=== PATIENT | female | born 1960 | race Caucasian/White ===

== ENCOUNTER 2017-04-26 12:09 | Emergency (ER) | payer BC, OTHER ==
[2017-04-26 12:26] VITALS: BMI 43.6
--- NOTE | 2017-04-26 12:34 | PDOC ---
History of Present Illness <Masha Gomez - Last Filed: 04/26/17 17:46> - General History Source: Patient Exam Limitations: No Limitations - History of Present Illness Travel History: No Initial Comments: 04/26/17 12:29 56 y/o female with left side abdominal pain and flank pain. No dysuria or hematuria. No fever or chills. This has been going on for 1 week. No fall or trauma. Now feeling nauseous and has a mild headache. No hx of kidney stone, but hx of thoracic aneusym repair.Patient denies vomiting or diarrhea. No rash. Denies chest pain or SOB. Pain radiates down back. No procedures, weakness or incontinence. Sates her CT back in December from [facility] was stable. She states to have a graft at the arch. Timing/Duration: reports: constant Abdominal Pain Onset Location: reports: LUQ, flank Pain Radiation: reports: no radiation <Tk Lehman - Last Filed: 04/26/17 18:03> - General Chief Complaint: Pain Stated Complaint: LEFT BACK/FLANK PAIN Time Seen by Provider: 04/26/17 12:12 Past History <Masha Gomez - Last Filed: 04/26/17 17:46> - Past Medical History COPD: No Diabetes: Yes GI Disorders: Yes HTN: Yes - Surgical History Cardiac Surgery: Yes (ASCENDING AORTIC ANUERYSM, PROSTHETIC VALVE) Cholecystectomy: Yes - Suicide/Smoking/Psychosocial Hx Smoking Status: Yes Smoking History: Former smoker Have you smoked in the past 12 months: No Number of Cigarettes Smoked Daily: 0 Information on smoking cessation initiated: No Hx Alcohol Use: No Drug/Substance Use Hx: No Substance Use Type: None <Tk Lehman - Last Filed: 04/26/17 18:03> - Past Medical History Allergies/Adverse Reactions: Allergies Allergy/AdvReac Type Severity Reaction Status Date / Time Penicillins Allergy Unknown Verified 04/26/17 12:12 atenolol Allergy Verified 04/26/17 12:12 Home Medications: Ambulatory Orders Ascorbic Acid [Vitamin C] 1,000 mg PO BID 12/13/12 Carvedilol [Coreg] 25 mg PO BID 12/13/12 Docusate Sodium [Colace] 100 mg PO BID 12/13/12 Lansoprazole [Prevacid] 15 mg PO DAILY PRN 12/13/12 Metformin HCl [Glucophage] 1,000 mg PO BID 12/13/12 Docosahexanoic Acid/Epa [Fish Oil Concentrate Softgel] 1 each PO BID 06/26/15 Losartan Potassium 100 mg PO DAILY 06/26/15 Aspirin [Aspirin EC] 81 mg PO DAILY 04/26/17 Cholecalciferol (Vitamin D3) [Vitamin D3] 5,000 unit PO DAILY 04/26/17 Cinnamon Bark [Cinnamon] 1,000 mg PO DAILY 04/26/17 Glimepiride [Amaryl] 1 mg PO DAILY 04/26/17 Ibuprofen [Advil -] 600 mg PO ONCE PRN 04/26/17 Review of Systems - Review of Systems Able to Perform ROS?: Yes Is the patient limited Lebanese proficient: No Constitutional: No: Chills, Fever Respiratory: No: Cough, Shortness of Breath Cardiac (ROS): No: Chest Pain ABD/GI: Yes: Nausea : No: Burning, Dysuria, Hematuria Musculoskeletal: Yes: Back Pain Neurological: Yes: Headache. No: Numbness, Paresthesia All Other Systems: Reviewed and Negative <Tk Lehman - Last Filed: 04/26/17 18:03> *Physical Exam - Vital Signs Last Vital Signs Temp Pulse Resp BP Pulse Ox 99.3 F 82 20 155/88 97 04/26/17 12:11 04/26/17 12:11 04/26/17 12:11 04/26/17 12:11 04/26/17 12:11 <Masha Gomez - Last Filed: 04/26/17 17:46> - Vital Signs Last Vital Signs Temp Pulse Resp BP Pulse Ox 99.3 F 82 20 155/88 97 04/26/17 12:11 04/26/17 12:11 04/26/17 12:11 04/26/17 12:11 04/26/17 12:11 - Physical Exam General Appearance: Yes: Nourished, Appropriately Dressed. No: Apparent Distress HEENT: positive: EOMI, SHANI, Normal ENT Inspection, Normal Voice Neck: positive: Trachea midline, Normal Thyroid, Supple. negative: Tender, Rigid Respiratory/Chest: positive: Lungs Clear, Normal Breath Sounds, Other (midline scar noted). negative: Chest Tender, Respiratory Distress Cardiovascular: positive: Regular Rhythm, Regular Rate, S1, S2. negative: Edema , JVD, Murmur Vascular Pulses: Femoral (R): 4+, Femoral (L): 4+, Carotid (R): 4+, Carotid (L) : 4+, Dorsalis-Pedis (R): 4+, Doralis-Pedis (L): 4+ Gastrointestinal/Abdominal: positive: Normal Bowel Sounds, Tender (mid epigastric and LUQ tenderness noted, no RLQ or RUQ tenderness, no pulsatile mass , no rash noted), Flat, Soft. negative: Organomegaly, Pulsatile Mass Lymphatic: negative: Adenopathy, Tenderness, Other Musculoskeletal: positive: Normal Inspection. negative: CVA Tenderness, Vertebral Tenderness (full ROM, no spinous process tenderness noted, mild left lower paraverteberal tenderness noted) Extremity: positive: Normal Capillary Refill, Normal Inspection, Normal Range of Motion Integumentary: positive: Normal Color, Dry, Warm Neurologic: positive: crew leader II-XII NML intact, Fully Oriented, Alert, Normal Mood/ Affect, Normal Response, Motor Strength 5/5 <Tk Lehman - Last Filed: 04/26/17 18:03> Heart Score/ECG Review - ECG Intrepretation Comment:: 04/26/17 17:[address] Lehman at this time Impression: Normal sinus rhythm , nonspecific Twave abnormality. No STEMI. Vent rate: 63 bpm <Masha Gomez - Last Filed: 04/26/17 17:46> ED Treatment Course - LABORATORY CBC & Chemistry Diagram: 04/26/17 13:15 04/26/17 13:15 - ADDITIONAL ORDERS Additional order review: Laboratory Results 04/26/17 04/26/17 13:15 12:35 Sodium 137 Potassium 3.5 Chloride 104 Carbon Dioxide 26 Anion Gap 7 L BUN 13 D Creatinine 0.7 Creat Clearance w eGFR > 60 Random Glucose 161 H D Calcium 9.4 Total Bilirubin 0.8 D AST 17 ALT 22 Alkaline Phosphatase 72 Total Protein 7.0 Albumin 4.0 Lipase 21 L Urine Color Yellow Urine Appearance Clear Urine pH 5.5 Ur Specific [place] 1.025 Urine Protein 1+ H Urine Glucose (UA) Negative Urine Ketones Negative Urine Blood Negative Urine Nitrite Negative Urine Bilirubin Negative Urine Urobilinogen 0.2 Ur Leukocyte Esterase Negative Urine RBC 0-3 Urine WBC 0-3 Ur Epithelial Cells Moderate Urine Bacteria Few 04/26/17 13:15 RBC 5.39 H MCV 77.0 L MCHC 32.8 RDW 15.0 MPV 8.3 Neutrophils % 65.4 Lymphocytes % 24.3 Monocytes % 4.4 Eosinophils % 4.6 H Basophils % 1.3 - RADIOLOGY Radiograph Interpretation: EXAM#: TYPE/EXAM: RESULT: [id number] CT/ABDOMEN PELVIS CT WITH CONTR Flank pain. Abdominal pain. Rule out aneurysm. CT scan of the abdomen and pelvis following intravenous contrast. Coronal and sagittal reformatted images were obtained 100 cc of Omnipaque 350 was intravenously injected Comparison: None available Examination was now made available for dictation. Examination is technically suboptimal with poor enhancement seen. Visualized lung base appears unremarkable and the heart is within normal limits in size. The liver is enlarged measuring 21.5 cm in craniocaudal length with diffuse decreased attenuation compatible with a fatty liver. Partially distended stomach without wall thickening. The spleen, pancreas, both adrenal glands and both kidneys appear unremarkable. There is no evidence of small bowel obstruction. Normal stool burden in the colon without wall thickening. Normal size uterus. Partially distended urinary bladder without wall thickening. Perirectal and pericecal fat are clear. A small fat-containing supraumbilical ventral hernia is present without herniating bowel loops. The abdominal aorta is poorly enhanced and is within normal limits in size. There is a faint lucent line within the aorta extending from the distal thoracic down to likely the level of the renal arteries take off consistent with dissection. Faint enhancement of the true and false lumen is present. Visualized osseous structures appear intact with mild degenerative changes in the lower thoracic spine Impression: No prior is available for comparison. Limited examination due to poor enhancement. In particular, there is poor enhancement of the included distal thoracic and abdominal aorta down through its bifurcation. There is evidence of aortic dissection extending from the included distal thoracic aorta probably down to the level of the renal arteries takeoff with faint enhancement of the true and false lumen and without evidence of aneurysmal dilatation. No gross extension of dissection into the celiac and superior mesenteric artery is identified. However, the examination is quite limited due to poor enhancement. Further evaluation with CT angiogram of the chest and abdomen is recommended. Hepatomegaly with fatty infiltration. Status post cholecystectomy. There is no evidence of hydroureteronephrosis, renal or ureteral stone, bilaterally. Case discussed via the phone with Dr. Tk Lehman, emergency room caring attending physician at [facility] at 4:51 PM. Reported By: Humberto Heredia MD 04/26/17 [id number] - Medications Given in the ED: ED Medications Discontinued Medications Generic Name Dose Route Start Last Admin Trade Name Fitz PRN Reason Stop Dose Admin Ketorolac Tromethamine 30 mg 04/26/17 13:24 04/26/17 13:25 Toradol Injection - IVPUSH 04/26/17 13:25 30 mg ONCE ONE Administration Ondansetron HCl 4 mg 04/26/17 12:36 04/26/17 13:15 Zofran Injection IVPUSH 04/26/17 12:37 4 mg ONCE ONE Administration <Masha Gomez - Last Filed: 04/26/17 17:46> - LABORATORY CBC & Chemistry Diagram: 04/26/17 13:15 04/26/17 13:15 - ADDITIONAL ORDERS Additional order review: 04/26/17 12:[address] abd/pelvis r/o stone/aneuysm <Tk Lehman - Last Filed: 04/26/17 18:03> Progress Note - Progress Note Progress Note: As per Radiologist 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 Will transfer pt to [facility] where she had her surgery first performed Pt is in agreement with plan. Images delayed from senior laboratory technician to Radiologist read. Spoke with Dr. Galarza from vascular who recommended to speak to cardiothoracic surgery Spoke with Dr. 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 Verdin <Tk Lehman - Last Filed: 04/26/17 18:03> Medical Decision Making - Medical Decision Making 04/26/17 16:55 I called [facility] ([id number]) and spoke with Serge. A request for transfer to Vascular Surgery was made and I am waiting for a call back from the vascular surgeon, Dr. Mendez. 04/26/17 17:40 Patient's case discussed with Dr. Vj Verdin, cardiothoracic surgery, who accepts this patient for transfer to the cardiothoracic ICU. STAT transfer team is on their way for Transfer of this patient to [facility] at 17:47 <Masha Gomez - Last Filed: 04/26/17 17:46> - Critical Care Time Total Critical Care Time (minutes): 60 Critical Care Statement: The care of this patient involved high complexity decision making to prevent further life threatening deterioration of the patient 's condition and/or to evaluate & treat vital organ system(s) failure or risk of failure. 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
[2017-04-26] MEDS ORDERED: ONDANSETRON 4 MG/2 ML VIAL IVPUSH ONE (12:36)
[2017-04-26] MEDS ORDERED: SODIUM CHLORIDE 1,000 ML IV SCH (12:45)
[2017-04-26 12:49] LABS: PH,URINE 5.5 (4.5-8); URINE APPEARANCE Clear; URINE BILIRUBIN Negative (NEGATIVE); URINE BLOOD Negative (NEGATIVE); URINE COLOR YELLOW; URINE GLUCOSE (UA) Negative (NEGATIVE); URINE KETONE Negative (NEGATIVE); URINE LEUK ESTERASE Negative (NEGATIVE); URINE NITRITE Negative (NEGATIVE); URINE PROTEIN 1+ (NEGATIVE); URINE UROBILINOGEN 0.2 (0.2-1.0)
[2017-04-26] MEDS ORDERED: ONDANSETRON 4 MG/2 ML VIAL ONE (12:59)
[2017-04-26 13:23] LABS: URINE RBC 0-3 /hpf (0-3)
[2017-04-26 13:24] LABS: URINE BACTERIA FEW /hpf (NEGATIVE); URINE WBC 0-3 (0-5)
[2017-04-26] MEDS ORDERED: KETOROLAC TROMETHAMINE 30 MG/1 ML VIAL IVPUSH ONE (13:24)
[2017-04-26] MEDS ORDERED: KETOROLAC TROMETHAMINE 30 MG/1 ML VIAL ONE (13:25)
[2017-04-26 13:29] LABS: BASOPHIL 1.3 % (0-2.0); EOSINOPHIL 4.6 % (0-4.5); MCH 25.2 pg (25.7-33.7); MCHC 32.8 g/dl (32.0-36.0); MEAN PLT VOLUME 8.3 fl (7.5-11.1); NEUTROPHILS 65.4 % (42.8-82.8); PLATELET COUNT 206 K/MM3 (134-434); WHITE BLOOD COUNT 5.8 K/mm3 (4.0-10.8)
[2017-04-26 13:48] LABS: ALK PHOS 72 U/L (32-92); ANION GAP 7 (8-16); BILIRUBIN,TOTAL 0.8 mg/dl (0.2-1.0); CALCIUM 9.4 mg/dl (8.4-10.2); CO2 26 mmol/L (22-28); CREATININE 0.7 mg/dl (0.6-1.3); GLUCOSE,RANDOM 161 mg/dl (74-106); SGOT/AST 17 U/L (10-42); SGPT/ALT 22 U/L (10-40)
[2017-04-26 17:14] VITALS: TEMP 98.6
[2017-04-26 17:36] LABS: ACTIVATED PTT 27.2 SECONDS (24.0-38.9)
[2017-04-26 17:41] LABS: INR 0.95 (0.82-1.09); PROTHROMBIN TIME (PATIENT) 10.7 SEC (10.2-13.0)
[2017-04-26 18:44] VITALS: PULSE 62
[2017-04-26 20:03] VITALS: BP 147/73
--- NOTE | 2017-04-27 08:31 | EKG ---
Test Reason : Blood Pressure : / mmHG Vent. Rate : 063 BPM Atrial Rate : 063 BPM P-R Int : 160 ms QRS Dur : 078 ms QT Int : 432 ms P-R-T Axes : 058 023 062 degrees QTc Int : 442 ms NORMAL SINUS RHYTHM NONSPECIFIC ST AND T WAVE ABNORMALITY POSSIBLE LEFT ATRIAL ENLARGEMENT NO PREVIOUS ECGS AVAILABLE Confirmed by ANUM SHAW MD ([id number]) on 04/27/2017 8:31:22 AM Referred By: DR KRAMER Confirmed By:ANUM SHAW MD
== END 2017-04-26 20:23 | disposition short-term general hospital (02) ==
LOC: FER 12:09 → SUPCPDRO 12:09 → FER 20:23
PROC: 3E0333Z Introduction of Anti-inflammatory into Peripheral Vein, Percutaneous Approach (ICD-10-PCS; principal; 2017-04-26)
PROC: 3E033GC Introduction of Other Therapeutic Substance into Peripheral Vein, Percutaneous Approach (ICD-10-PCS; 2017-04-26)
DX: I71.02 Dissection of abdominal aorta (principal); Z87.891 Personal history of nicotine dependence; I10 Essential (primary) hypertension; E11.9 Type 2 diabetes mellitus without complications; K92.9 Disease of digestive system, unspecified
CPT/HCPCS: 36415; 71010-TC; 74177-TC; 80053; 81003; 81015; 83690; 84484; 85025; 85610; 85730; 93005; 99285-25